=== PATIENT | female | born 1950 | race Caucasian/White ===

== ENCOUNTER 2024-01-24 11:43 | Outpatient (CLI) | payer BC, SELFPAY | END 2024-01-24 11:44 | disposition home or self-care (01) | PROVIDERS: PCP Emergency Medicine; Visit Provider Emergency Medicine | DX: R31.0 Gross hematuria (principal); I12.9 Hypertensive chronic kidney disease with stage 1 through stage 4 chronic kidney disease, or unspecified chronic kidney disease; N18.30 Chronic kidney disease, stage 3 unspecified | CPT/HCPCS: 80048; 87086 ==

== ENCOUNTER 2024-01-31 12:50 | Outpatient (CLI) | payer MEDICARE, SELFPAY ==
--- NOTE | 2024-01-31 13:00 | CRLHL7_ITS ---
For Patients: As a result of the Century Cures Act, medical imaging exams and procedure reports are released immediately into your electronic medical record. You may view this report before your referring provider. If you have questions, please contact your health care provider. Indication: Hematuria Technique: CT abdomen and pelvis without and with intravenous contrast; 116 cc of Isovue 370 Comparison: None Findings: Lower chest is clear. The liver, gallbladder, spleen, adrenal glands and pancreas are normal. 7 millimeter stone is identified within a right mid kidney calyx without hydronephrosis. There are a few other sub 3 millimeter right kidney stones. Left kidney cyst measures up to 33 millimeters. Urinary bladder is minimally filled and inadequately evaluated. There are no pelvic cysts or masses. The appendix is normal. The hollow viscera is without obstruction, focal bowel wall thickening or adjacent inflammatory stranding. Mild distal colonic diverticulosis is noted. There is no free air, ascites or lymphadenopathy. The abdominal aorta and its major branches are patent and normal in caliber. Very small fat containing umbilical hernia is noted. There are degenerative changes within the lumbar spine and hips. Impression: 7 millimeter nonobstructing right kidney stone. Please note that all CT scans at this facility use dose modulation, iterative reconstruction, and/or weight-based dosing when appropriate to reduce radiation dose to as low as reasonably achievable. Dictated by Damien Peralta MD @ 02/01/2024 11:52:59 AM (Electronically Signed)
== END 2024-01-31 12:51 | disposition home or self-care (01) ==
PROVIDERS: PCP Emergency Medicine; Visit Provider Emergency Medicine
DX: R31.0 Gross hematuria (principal); N20.0 Calculus of kidney
CPT/HCPCS: 74178; Q9967

== ENCOUNTER 2024-11-27 11:09 | Outpatient (CLI) | payer MEDICARE, SELFPAY | END 2024-11-27 11:10 | disposition home or self-care (01) | LOC: NFLDREF 11-28 03:12 | PROVIDERS: PCP Emergency Medicine; Referring Provider Emergency Medicine; Visit Provider Emergency Medicine | DX: I12.9 Hypertensive chronic kidney disease with stage 1 through stage 4 chronic kidney disease, or unspecified chronic kidney disease (principal); N18.31 Chronic kidney disease, stage 3a; E55.9 Vitamin D deficiency, unspecified; E78.2 Mixed hyperlipidemia; R31.0 Gross hematuria | CPT/HCPCS: 80053; 80061; 82043; 82248; 82306; 82570 ==